=== PATIENT | female | born 1970 | race Caucasian/White ===

== ENCOUNTER 2020-11-13 18:45 | Emergency (ER) | payer MEDICARE, OTHER ==
[~2020-11-13] VITALS: Ht 175.3 cm; Wt 65.9 kg
[2020-11-13] MEDS ORDERED: TOLT2TAB2 PO (19:45)
[2020-11-13 21:20] VITALS: BP 153/90
== END 2020-11-13 21:25 | disposition home or self-care (01) ==
LOC: EMS 18:47
DX: F69 Unspecified disorder of adult personality and behavior (principal); R45.851 Suicidal ideations; M79.10 Myalgia, unspecified site; F17.210 Nicotine dependence, cigarettes, uncomplicated; Z88.5 Allergy status to narcotic agent; Z88.8 Allergy status to other drugs, medicaments and biological substances
CPT/HCPCS: 99285; Z7502